=== PATIENT | male | born 1955 | race African-American/Black ===

== ENCOUNTER 2021-02-10 06:01 | Inpatient (IN) | payer OTHER, SELFPAY ==
[2021-02-07 11:50] LABS: BASOPHILS # (AUTO) 0.1 K/uL (0.0-0.2); BASOPHILS % (AUTO) 1.2 % (0.0-2.0); EOSINOPHILS # (AUTO) 0.2 K/uL (0.0-0.4); EOSINOPHILS % (AUTO) 3.6 % (0.0-4.0); HEMATOCRIT 40.7 % (36-54); HEMOGLOBIN 13.5 g/dL (14.0-18.0); LYMPHOCYTES # (AUTO) 1.4 K/uL (1.0-5.5); LYMPHOCYTES % (AUTO) 32.8 % (20.5-51.5); MEAN CORPUSCULAR HEMOGLOBIN 28 pg (27-31); MEAN CORPUSCULAR HGB CONC 33 % (32-36); MEAN CORPUSCULAR VOLUME 84 fL (79.0-98.0); MONOCYTES # (AUTO) 0.5 K/uL (0.0-1.0); MONOCYTES % (AUTO) 11.2 % (1.7-9.3); NEUTROPHILS # (AUTO) 2.3 K/uL (1.8-7.7); NEUTROPHILS % (AUTO) 51.2 % (40.0-70.0); PLATELET COUNT (AUTO) 299 K/uL (130-430); RED BLOOD CELL COUNT(AUTO) 4.82 MIL/uL (4.2-6.2); RED CELL DISTRIBUTION WIDTH 14.7 % (9.0-15.0); WHITE BLOOD COUNT (AUTO) 4.4 K/uL (4.8-10.8)
[2021-02-07 11:59] LABS: CALCIUM 8.4 mg/dL (8.4-11.0); CREATININE 1.09 mg/dL (0.55-1.30); POTASSIUM 4.3 mmol/L (3.5-5.1)
[2021-02-07 12:15] LABS: BILIRUBIN,URINE NEGATIVE (NEGATIVE); BLOOD, URINE NEGATIVE (NEGATIVE); CLARITY/URINE CLEAR (CLEAR); COLOR,URINE YELLOW (YELLOW); GLUCOSE,URINE NEGATIVE (NEGATIVE); KETONES,URINE NEGATIVE (NEGATIVE); LEUKOCYTE ESTERASE ,URINE NEGATIVE (NEGATIVE); NITRITE, URINE NEGATIVE (NEGATIVE); PH,URINE 6.5 (5.0-8.0); PROTEIN URINE NEGATIVE (NEGATIVE); UROBILINOGEN,URINE 0.2 (0.2-1.0)
[~2021-02-10] VITALS: Ht 188 cm; Wt 95.3 kg
[2021-02-10] MEDS ORDERED: D5/0.45 NS 1,000 ML IV ONE (07:45)
[2021-02-10] MEDS ORDERED: BISACODYL 10 MG/SUPPOSITORY RC PRN (07:45)
[2021-02-10] MEDS ORDERED: BUPIVACAINE LIPOSOME/PF 266 MG/20 ML VIAL INFIL ONE (07:59)
[2021-02-10] MEDS: CEFAZOLIN 1 GM IVPB PREMIX 50 ML IV SCH ×2 (08:00→16:48)
[2021-02-10] MEDS ORDERED: POLYMYXIN 500,000/BACIT.10,000 UNITS in NS IRR 1 L IR ONE (08:19)
[2021-02-10] MEDS ORDERED: CEFAZOLIN SOD 2 GM in D5W 50 ML IV ONE (08:30)
[2021-02-10] MEDS ORDERED: NALT50TA PO (09:15)
[2021-02-10] MEDS ORDERED: TAMS-11 PO (09:15)
[2021-02-10] MEDS ORDERED: OMEP20CA15 PO (09:15)
[2021-02-10] MEDS ORDERED: KETOROLAC TROMETHAMINE 30 MG VIAL IVP PRN (11:00)
[2021-02-10] MEDS ORDERED: NALOXONE HCL 0.4 MG/ML AMP (NARCAN) IVP PRN ×2 (11:00)
[2021-02-10] MEDS ORDERED: HYDROmorphone 1 MG/ML INJ. CARTRIDGE IVP PRN (11:00)
[2021-02-10] MEDS ORDERED: ONDANSETRON HCL 4 MG/2 ML VIAL IVP PRN (11:00)
[2021-02-10] MEDS ORDERED: MEPERIDINE HCL/PF 25 MG/ML DISP.SYRIN IVP PRN (11:00)
[2021-02-10] MEDS ORDERED: LR 1,000 ML IV SCH (11:00)
[2021-02-10] MEDS ORDERED: ePHEDrine sulfate 50 MG/ML VIAL ONE (11:32)
[2021-02-10] MEDS ORDERED: WATER FOR IRRIGATION,STERILE 1,000 ML IRRIG.SOLN IR ONE (11:32)
[2021-02-10] MEDS ORDERED: LR 1,000 ML IV.SOLN IV ONE (11:32)
[2021-02-10] MEDS ORDERED: BUPIVACAINE /PF 0.75% 10 ML VIAL INJ ONE (11:32)
[2021-02-10] MEDS ORDERED: BUPIVACAINE /EPINEPHRINE/PF 0.5% 30 ML VIAL INJ ONE (11:32)
[2021-02-10] MEDS ORDERED: fentaNYL CITRATE/PF 100 MCG/2 ML AMP ONE (11:32)
[2021-02-10] MEDS ORDERED: SEVOFLURANE 15 MIN GAS INH ONE (11:32)
[2021-02-10] MEDS ORDERED: DEXAMETHASONE SOD PHOSPHATE 4 MG/ML VIAL ONE (11:32)
[2021-02-10] MEDS ORDERED: METOCLOPRAMIDE HCL 10 MG/2 ML VIAL ONE (11:32)
[2021-02-10] MEDS ORDERED: KETOROLAC TROMETHAMINE 30 MG VIAL ONE (11:32)
[2021-02-10] MEDS ORDERED: NS 100 ML BAG ONE (11:32)
[2021-02-10] MEDS ORDERED: MIDAZOLAM HCL 5 MG/ML VIAL (VERSED) IV ONE (11:32)
[2021-02-10] MEDS ORDERED: ONDANSETRON HCL 4 MG/2 ML VIAL ONE (11:32)
[2021-02-10] MEDS ORDERED: PROPOFOL 200MG/ 20ML VIAL (DIPRIVAN) IV ONE (11:32)
[2021-02-10 13:30] VITALS: BP_SYST 109
[2021-02-10] MEDS: MORPHINE SULFATE 10 MG/ML VIAL IM PRN ×2 (15:34→20:35)
[2021-02-10 17:13] VITALS: BP_SYST 110
[2021-02-10 20:05] VITALS: BP_SYST 126
[2021-02-10] MEDS: HYDROcodone/ACETAMIN 7.5-325 MG TAB PO PRN (23:35)
[2021-02-11 00:11] VITALS: BP_SYST 130
[2021-02-11] MEDS: HYDROcodone/ACETAMIN 7.5-325 MG TAB PO PRN (03:24)
[2021-02-11] MEDS: MORPHINE SULFATE 10 MG/ML VIAL IM PRN ×2 (05:27→09:49)
[2021-02-11 08:00] VITALS: BP_SYST 110
[2021-02-11] MEDS: RIVAROXABAN 10 MG TABLET PO SCH (08:38)
[2021-02-11] MEDS ORDERED: TAMSULOSIN HCL 0.4 MG CAP PO ONE (10:15)
[2021-02-11 11:39] VITALS: BP_SYST 129
[2021-02-11] MEDS: ACETAMINOPHEN 325 MG TABLET PO PRN (14:35)
[2021-02-11 15:29] VITALS: BP_SYST 145
[2021-02-11 20:05] VITALS: BP_SYST 123
[2021-02-12 00:08] LABS: BASOPHILS % (AUTO) 0.5 % (0.0-2.0); EOSINOPHILS % (AUTO) 0.3 % (0.0-4.0); HEMATOCRIT 28.4 % (36-54); HEMOGLOBIN 9.7 g/dL (14.0-18.0); LYMPHOCYTES # (AUTO) 1.4 K/uL (1.0-5.5); LYMPHOCYTES % (AUTO) 16.1 % (20.5-51.5); MEAN CORPUSCULAR HEMOGLOBIN 29 pg (27-31); MEAN CORPUSCULAR HGB CONC 34 % (32-36); MEAN CORPUSCULAR VOLUME 83 fL (79.0-98.0); MONOCYTES # (AUTO) 1.3 K/uL (0.0-1.0); MONOCYTES % (AUTO) 14.9 % (1.7-9.3); NEUTROPHILS # (AUTO) 5.7 K/uL (1.8-7.7); NEUTROPHILS % (AUTO) 68.2 % (40.0-70.0); PLATELET COUNT (AUTO) 234 K/uL (130-430); RED BLOOD CELL COUNT(AUTO) 3.41 MIL/uL (4.2-6.2); RED CELL DISTRIBUTION WIDTH 14.4 % (9.0-15.0); WHITE BLOOD COUNT (AUTO) 8.4 K/uL (4.8-10.8)
[2021-02-12 00:33] LABS: CALCIUM 7.4 mg/dL (8.4-11.0); CREATININE 1.02 mg/dL (0.55-1.30); POTASSIUM 4.3 mmol/L (3.5-5.1)
[2021-02-12 00:40] LABS: ALBUMIN 2.4 g/dL (3.4-4.8); TOTAL BILIRUBIN 0.3 mg/dL (0.0-1.0)
[2021-02-12 01:11] VITALS: BP_SYST 106
[2021-02-12] MEDS: ACETAMINOPHEN 325 MG TABLET PO PRN ×2 (01:25→10:12)
[2021-02-12 08:00] VITALS: BP_SYST 110
[2021-02-12] MEDS: RIVAROXABAN 10 MG TABLET PO SCH (08:59)
[2021-02-12] MEDS ORDERED: PANTOPRAZOLE SODIUM 40 MG TAB PO SCH (09:00)
[2021-02-12] MEDS ORDERED: TAMSULOSIN HCL 0.4 MG CAP PO SCH (09:00)
[2021-02-12] MEDS: MORPHINE SULFATE 10 MG/ML VIAL IM PRN ×2 (09:01→13:06)
[2021-02-12 11:26] VITALS: BP_SYST 123
[2021-02-12 14:30] VITALS: BP_SYST 111
[2021-02-12] MEDS ORDERED: TRANEXAMIC ACID 1,000 MG/10 ML VIAL IV ONE (14:47)
== END 2021-02-12 16:30 | disposition home health service (06) | DRG 470 ==
LOC: SMU 06:01
PROVIDERS: ADMIT Orthopaedic Surgery; ATTEND Orthopaedic Surgery
PROC: 0SRC0JZ Replacement of Right Knee Joint with Synthetic Substitute, Open Approach (ICD-10-PCS; principal; 2021-02-10 08:30)
DX: M17.11 Unilateral primary osteoarthritis, right knee (principal); E44.1 Mild protein-calorie malnutrition; N40.0 Benign prostatic hyperplasia without lower urinary tract symptoms; K21.9 Gastro-esophageal reflux disease without esophagitis; G89.29 Other chronic pain; Z96.659 Presence of unspecified artificial knee joint; Z20.822 Contact with and (suspected) exposure to COVID-19
CPT/HCPCS: 36415; 71046-TC; 80048; 80053; 81003; 85025; 85610-TC; 85730-TC; 87081; 88305; 88311; 93005; 94010; 97039; 97110-GP; 97116-GP; 97530-GP; C1713; C1776; C9290; J0690; J1100; J1885; J2250; J2270; J2405; J2704; J2765; J3010; J3490; J7060; J7120; U0003